=== PATIENT | female | born 1995 | race Caucasian/White ===

== ENCOUNTER 2020-12-20 11:13 | Emergency (ER) | payer OTHER ==
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
== END 2020-12-20 13:50 | disposition home or self-care (01) ==
LOC: FB.ED 11:13
DX: T25.292A Burn of second degree of multiple sites of left ankle and foot, initial encounter (principal); T25.291A Burn of second degree of multiple sites of right ankle and foot, initial encounter; X19.XXXA Contact with other heat and hot substances, initial encounter
CPT/HCPCS: 99000; 99283